=== PATIENT | female | born 1990 | race Caucasian/White ===

== ENCOUNTER 2024-01-18 07:07 | Inpatient (IN) | payer OTHER, BC ==
[~2024-01-18 07:07] MED LIST: Bupivacaine 0.25% 10 ML SDV ONE
[2024-01-18] MEDS ORDERED: Sodium Chloride 0.9% 10 ML Syringe FLUSH PRN (07:11)
[2024-01-18] MEDS ORDERED: Nalbuphine 10 MG/1 ML Vial IVPUSH PRN (07:11)
[2024-01-18] MEDS ORDERED: Lidocaine 1% 50 ML MDV INJECT PRN (07:11)
[2024-01-18] MEDS ORDERED: Ondansetron 4 MG/2 ML SDV IVPUSH PRN (07:11)
[2024-01-18] MEDS ORDERED: Oxytocin/0.9 % Sodium Chloride 30 UNIT/500 ML BAG IV SCH ×2 (07:15)
[2024-01-18] MEDS ORDERED: diphenhydrAMINE 50 MG/ML SDV IVPUSH PRN (07:50)
[2024-01-18] MEDS ORDERED: ePHEDrine 50 MG/ML SDV IVPUSH PRN (07:50)
[2024-01-18 07:51] LABS: BASOPHILS PERCENT AUTO 0.2 % (0.0-1.0); EOSINOPHILS PERCENT AUTO 0.5 % (0.0-6.0); HEMATOCRIT 35.1 % (37.0-47.0); HEMOGLOBIN 11.9 gm/dl (12.0-16.0); IMMATURE GRAN ABSOLUTE AUTO 0.06 K/mm3 (0.00-0.05); IMMATURE GRAN PERCENT AUTO 0.7 % (0.0-0.4); LYMPHOCYTES ABSOLUTE AUTO 1.4 K/mm3 (1.0-4.8); MEAN CORPUSCULAR HEMOGLOBIN 30.2 pg (28.0-32.0); MEAN CORPUSCULAR HGB CONC 33.9 g/dl (32.0-36.0); MEAN CORPUSCULAR VOLUME 89.1 fl (83.0-99.0); MONOCYTES ABSOLUTE AUTO 0.5 K/mm3 (0.0-0.8); MONOCYTES PERCENT AUTO 6.3 % (0.0-8.0); NEUTROPHILS ABSOLUTE AUTO 6.6 K/mm3 (1.8-7.7); NEUTROPHILS PERCENT AUTO 76.3 % (41.0-71.0); PLATELET COUNT,PLT 191 K/mm3 (150-400); RED BLOOD CELL COUNT 3.94 M/mm3 (4.10-5.30); WHITE BLOOD CELL COUNT,WBC 8.64 K/mm3 (3.9-11.3)
[2024-01-18] MEDS: Lactated Ringers 1,000 ML IV SCH (10:47)
[2024-01-18] MEDS: Bupivacaine/fentaNYL/NS 100 ML Bag EPIDUR PRN (11:20)
[2024-01-18] MEDS: fentaNYL 100 MCG/2 ML SDV EPIDUR PRN (11:20)
[2024-01-18] MEDS: Sodium Chloride 0.9% 10 ML Syringe FLUSH SCH (11:42)
[2024-01-18] MEDS ORDERED: Benzocaine/Menthol 20%-0.5% Spray 78 GM Cannister TOP PRN (14:33)
[2024-01-18] MEDS ORDERED: Docusate Sodium 100 MG Cap PO PRN (14:33)
[2024-01-18] MEDS ORDERED: Acetaminophen 325 MG Tab PO PRN (14:33)
[2024-01-18] MEDS: Witch Hazel Medicated Pads 40/Jar TOP PRN (17:59)
[2024-01-18] MEDS: Ibuprofen 600 MG Tab PO SCH (18:12)
== END 2024-01-18 18:26 | disposition home or self-care (01) | DRG 807 ==
LOC: JD.OB 07:07 → OBSVTOIN 12:32
PROVIDERS: ADMIT Obstetrics & Gynecology; ATTEND Obstetrics & Gynecology
PROC: 10E0XZZ Delivery of Products of Conception, External Approach (ICD-10-PCS; principal; 2024-01-18)
PROC: 0KQM0ZZ Repair Perineum Muscle, Open Approach (ICD-10-PCS; 2024-01-18)
PROC: 10907ZC Drainage of Amniotic Fluid, Therapeutic from Products of Conception, Via Natural or Artificial Opening (ICD-10-PCS; 2024-01-18)
PROC: 3E0R3BZ Introduction of Anesthetic Agent into Spinal Canal, Percutaneous Approach (ICD-10-PCS; 2024-01-18)
PROC: 00HU33Z Insertion of Infusion Device into Spinal Canal, Percutaneous Approach (ICD-10-PCS; 2024-01-18)
DX: O70.1 Second degree perineal laceration during delivery (principal); Z37.0 Single live birth; Z3A.39 39 weeks gestation of pregnancy; Z90.89 Acquired absence of other organs; Z98.890 Other specified postprocedural states; Z33.3 Pregnant state, gestational carrier
CPT/HCPCS: 36415; 51701; 59025; 59409; 85025; 86592; 86850; 86900; 86901; J0665; J3010; J3490; J7120